=== PATIENT | male | born 1965 | race Two or more races ===

== ENCOUNTER 2018-01-28 14:27 | Emergency (ER) | payer SELFPAY ==
[~2018-01-28] VITALS: Ht 175.3 cm; Wt 99.8 kg
[2018-01-28 15:01] VITALS: BP 129/71
--- NOTE | 2018-01-28 15:31 | Emergency Room Report ---
History of Present Illness General Chief Complaint: Fever Source: Patient Present Illness HPI patient is a 52-year-old male with no significant past medical history here complaining of 2 days of sore throat and fever. Denies SOB, cough, rhinorrhea, chest pain, palpitation patient is rating his pain 10 out of 10, difficulty swallowing, and has taken ibuprofen with some releif Allergies: Coded Allergies: No Known Allergies (Unverified , 01/28/18) Patient History Past Medical History: see triage record Pertinent Family History: none Immunizations: UTD Reviewed Nursing Documentation: PMH: Agreed; PSxH: Agreed Nursing Documentation-PMH Past Medical History: No Stated History Review of Systems All Other Systems: negative except mentioned in HPI Physical Exam Vital Signs Date Time Temp Pulse Resp B/P (MAP) Pulse Ox O2 Delivery O2 Flow Rate FiO2 01/28/18 14:56 102.7 103 18 129/71 92 Room Air 102.7 Sp02 EP Interpretation: reviewed, normal General Appearance: normal inspection, well appearing, no apparent distress Head: normocephalic, atraumatic Eyes: bilateral eye normal inspection, bilateral eye PERRL ENT: normal ENT inspection, hearing grossly normal, no angioedema, uvula midline, tonsillar swelling - 2+ bilaterally, tonsillar exudate - and lateral tonsils Neck: full range of motion, supple, other - anterior cervical lymphadenopathy Respiratory: normal inspection, chest non-tender, lungs clear, normal breath sounds, no rhonchi, no respiratory distress, no retraction Cardiovascular #1: normal inspection, normal peripheral pulses, regular rate, rhythm, no edema Gastrointestinal: normal inspection, normal bowel sounds, non tender, soft Rectal: deferred Genitourinary: deferred Musculoskeletal: normal inspection, back normal Neurologic: normal inspection, alert, oriented x3, responsive Psychiatric: normal inspection, judgement/insight normal, memory normal Skin: normal inspection, normal color, no rash Lymphatic: adenopathy - Anterior cervical Medical Decision Making PA Attestation All orders, diagnosis, treatment plans were reviewed and discussed with my supervising physician Dr. Roberson Diagnostic Impression: Primary Impression: Strep pharyngitis Additional Impression: Fever ER Course patient is a 52-year-old male with no significant past medical history here complaining of 2 days of sore throat and fever. Denies SOB, cough, rhinorrhea, chest pain, palpitation patient is rating his pain 10 out of 10, difficulty swallowing, and has taken ibuprofen with some releif Ddx considered but are not limited to history of pharyngitis and URI Vital signs: are WNL, pt. is afebrile H&PE are most consistent with strep pharyngitis ORDERS: amoxicillin, Motrin ED INTERVENTIONS: None required at this time. DISCHARGE: At this time pt. is stable for d/c to home. Will provide printed patient care instructions, and any necessary prescriptions. Care plan and follow up instructions have been discussed with the patient prior to discharge. Last Vital Signs Date Time Temp Pulse Resp B/P (MAP) Pulse Ox O2 Delivery O2 Flow Rate FiO2 01/28/18 15:01 102.7 18 129/71 92 Room Air 102.7 01/28/18 14:56 103 Disposition: HOME, SELF-CARE Condition: Stable Scripts Amoxicillin* (AMOXIL*) 500 Mg Capsule 500 MG ORAL BID for 7 Days, #14 CAP Prov: Tony Sal 01/28/18 Patient Instructions: Fever, Adult, Pharyngitis Additional Instructions: medical diuretics, he take Motrin every 6 hours as for fever, shortness of breath, reasons to return to emergency room Tony Sal Jan 28, 2018 15:31
[2018-01-28] MEDS ORDERED: AMOXICILLIN500 MG ORAL (15:33)
[2018-01-28 15:38] VITALS: BP 129/71
== END 2018-01-28 15:50 | disposition home or self-care (01) ==
LOC: EMR 15:45
DX: J02.0 Streptococcal pharyngitis (principal); R50.9 Fever, unspecified
CPT/HCPCS: 99283